=== PATIENT | male | born 1960 | race Caucasian/White ===

== ENCOUNTER → 2020-10-01 11:56 | Outpatient (BNVA) | payer OTHER, SELFPAY | PROVIDERS: PCP Family Medicine; Visit Provider Physician Assistant Medical | DX: S01.312A Laceration without foreign body of left ear, initial encounter (principal); W26.8XXA Contact with other sharp object(s), not elsewhere classified, initial encounter | CPT/HCPCS: 12001; 90715; 99203 ==

== ENCOUNTER → 2020-10-02 09:23 | Outpatient (BNVA) | payer OTHER, SELFPAY | PROVIDERS: PCP Family Medicine; Visit Provider Physician Assistant Medical | DX: S01.311A Laceration without foreign body of right ear, initial encounter (principal); X58.XXXA Exposure to other specified factors, initial encounter | CPT/HCPCS: 99213 ==

== ENCOUNTER → 2020-10-06 14:41 | Outpatient (BNVA) | payer OTHER, SELFPAY | PROVIDERS: PCP Family Medicine; Visit Provider Internal Medicine | DX: Z48.02 Encounter for removal of sutures (principal); S01.311A Laceration without foreign body of right ear, initial encounter; W26.8XXA Contact with other sharp object(s), not elsewhere classified, initial encounter | CPT/HCPCS: 99212; 99213 ==

== ENCOUNTER 2025-03-22 22:28 | Emergency (ER) | payer BC, SELFPAY ==
--- NOTE | ~2025-03-22 | CT_ITS ---
CLINICAL HISTORY: fall +headstrike CT head without contrast Comparison: None provided Findings: No intra-axial mass, midline shift, hydrocephalus, or acute hemorrhage. No significant atrophy-like change or white matter disease. Moderate mucous retention cyst/polyp in left maxillary sinus and small mucous retention cyst/polyp in right maxillary sinus. The orbits are within normal limits. There is no acute skull fracture. IMPRESSION: 1. No acute intracranial findings. This document has been electronically signed by: Mariaelena Song MD on 03/23/2025 00:03:30
--- NOTE | ~2025-03-22 | CT_ITS ---
CLINICAL HISTORY: fall +headstrike CT cervical spine without contrast Comparison: None provided Findings: Minimal dextrocurvature of the cervical spine. Otherwise alignment is maintained. No subluxation. Vertebral body height is maintained. No acute fracture in the cervical spine. Craniocervical junction is intact. Multilevel degenerative changes most significantly involving C6-7 level with sclerotic changes along the endplates. Right-sided facet arthropathy. Bilateral neural foraminal stenosis at C4-5, C5-6 and C6-7 level. Prevertebral soft tissues within normal limits. No cervical fluid collections or masses. Lung apices are clear. IMPRESSION: 1. No acute findings. 2. Multilevel degenerative changes foraminal stenosis from C4-5 to C6-7. This document has been electronically signed by: Mariaelena Song MD on 03/23/2025 00:00:13
[2025-03-22 22:39] VITALS: BP 127/59; PULSE 94; RESP 18; TEMP 36.2; O2SAT 95; BMI 33.0
--- NOTE | 2025-03-22 22:46 | PC.NURSE ---
per Dr Mackenzie to hold off on labs/ekg at this time as pt did not have sx prior to fall. verbal order for CT of head/cervical ordered.
--- NOTE | 2025-03-22 22:46 | PC.NURSE ---
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 pt is axox4 ambulatory with steady gait.
--- NOTE | 2025-03-22 23:08 | ED.GENADULT ---
[facility] - General Adult General Chief complaint: Fall Stated complaint: head laceration Time Seen by Provider: 03/22/25 23:01 Source: patient Mode of arrival: ambulatory Limitations: no limitations History of Present Illness ED Provider: Dr. Mackenzie [facility] narrative: 62-year-old male history of diabetes presented hospital today after a trip and fall. Patient had a mechanical accident. Patient has struck his head on a cabinet. Also consciousness. Patient did admit to some alcohol usage. Denies any injury anywhere else. He does have a laceration to the posterior scalp. Related Data Allergies Allergy/AdvReac Type Severity Reaction Status Date / Time Penicillins (PENICILLINS) Allergy Unknown RASH Verified 03/22/25 22:43 Review of Systems Review of Systems: Pertinent review of systems as mentioned in [facility]. All other system otherwise negative. [facility] Past Medical History [facility] Narrative: Medical history as mentioned in [facility] Social History Social History Smoked in Last 30 Days: No Use of substances other than those prescribed or required for medical reasons: No Advance Directives: No Do you have a plan to hurt others: No Plan Physical Exam ED Exam Exam: General: Pleasant, no distress, interacting appropriately Head: Normacephalic, 3 inch laceration of the left posterior scalp appear to be hemostatic on exam. Neurological: Awake and alert, no facial droop noted Skin: Warm and dry Psychiatric: Appropriate mood and thoughts Vital Signs: Vital Signs - 24 hr 03/22/25 22:39 03/22/25 23:11 Temperature 97.2 F 97.2 F Pulse Rate 94 94 Respiratory Rate 18 18 Blood Pressure 127/59 L 127/59 L Pulse Oximetry 95 95 Oxygen Delivery Method Room Air BMI result Body Mass Index 33.0 Procedures Laceration Laceration 1: Site: scalp Side (If applicable): left Size (cm): 5 Description: linear Depth: simple, single layer Pre-repair: irrigated extensively Skin layer closed with: other ([place], 8 was placed. ) Medical Decision Making Medical Decision Making [facility] Narrative: 64-year-old male history of diabetes presented hospital today for a fall. CT head and CT C-spine was obtained. Did repair the patient's laceration with 8 shirley. This was irrigated extensively with normal saline. Fair to be hemostatic and superficial on exam. 3 inch linear laceration. Patient states tetanus shot is up-to-date. CT head is negative. Patient will be discharged at this time. He is clinically sober Differential Diagnosis Differential Diagnoses: The differential diagnosis associated with the presentation includes Scalp laceration, intracranial bleed, subdural hematoma, C-spine fracture Independent Interpretation I performed an independent interpretation of an: CT Scan Radiology Impression Discussion of test interpretation with radiology: I have reviewed the radiologist's reading. Discharge Plan Discharge Clinical Impression: Laceration of scalp Patient Disposition: Home, Self-Care Instructions: Staple Care (ED) Additional Instructions: Have it remove in 5 days. 8 shirley were placed Print Language: Welsh
[2025-03-22 23:11] VITALS: BP 127/59; PULSE 94; RESP 18; TEMP 36.2; O2SAT 95
[2025-03-23 00:19] VITALS: BP 142/72; PULSE 84; RESP 17; TEMP 36.7; O2SAT 95
== END 2025-03-23 00:20 | disposition home or self-care (01) ==
PROVIDERS: Emergency Provider Student in an Organized Health Care Education/Training Program; PCP Family Medicine
DX: S01.01XA Laceration without foreign body of scalp, initial encounter (principal); R51.9 Headache, unspecified; M54.2 Cervicalgia; W26.9XXA Contact with unspecified sharp object(s), initial encounter; Y93.9 Activity, unspecified; Y92.9 Unspecified place or not applicable; Y99.8 Other external cause status
CPT/HCPCS: 12002; 70450; 72125; 99284

== ENCOUNTER → 2025-03-22 22:50 | Outpatient (BNV) | payer BC, SELFPAY | PROVIDERS: Emergency Provider Student in an Organized Health Care Education/Training Program; PCP Family Medicine; Visit Provider Specialist | DX: M50.321 Other cervical disc degeneration at C4-C5 level (principal); M50.323 Other cervical disc degeneration at C6-C7 level; M99.61 Osseous and subluxation stenosis of intervertebral foramina of cervical region; S09.90XA Unspecified injury of head, initial encounter; W19.XXXA Unspecified fall, initial encounter | CPT/HCPCS: 70450; 72125 ==